=== PATIENT | female | born 1965 | race Caucasian/White ===

== ENCOUNTER → 2020-04-02 | Outpatient (CLI) | payer SELFPAY ==
[~2020-04-02] MED LIST: COZAAR 25MG25 MG/TAB PO; CYCLOSPORINE25 MG PO; RAPAMUNE2 MG
[2020-04-02 17:30] LABS: MEAN CELL VOLUME 71 fl (80.0-100.0); MEAN CORPUSCULAR HGB CONC 29 g/dl (33.0-37.0); MEAN PLATELET VOLUME 8.6 fl (7.4-10.4); PLATELET COUNT 312 K/mm3 (130-400); RED BLOOD COUNT 2.98 M/mm3 (4.10-5.30); REDCELL DISTRIBUTION WIDTH-CV 17.9 % (11.5-14.5)
[2020-04-02 17:39] LABS: HEMATOCRIT 21.2 % (37.0-47.0); HEMOGLOBIN 6.2 g/dl (12.5-16.0); MEAN CORPUSCULAR HEMOGLOBIN 21 pg (27.0-31.0)
[2020-04-02 17:42] LABS: ALBUMIN 4.2 gm/dL (3.5-5.0); BILIRUBIN,TOTAL 0.3 mg/dL (0.0-1.0); CALCIUM 9.3 mg/dL (8.4-10.2); CREATININE, serum 1.14 (0.52-1.25); POTASSIUM 4.5 mmol/L (3.4-5.0); TOTAL PROTEIN 8.1 gm/dL (6.4-8.2)
[2020-04-02 17:47] LABS: IRON,SERUM 24 ug/dL (35-150)
[2020-04-02 17:56] LABS: TOTAL IRON BINDING CAPACITY 245 ug/dL (265-497)
[2020-04-02 19:05] LABS: ANISOCYTOSIS 3+; BAND 5 % (0-10); HYPOCHROMIA 3+; LYMPHOCYTE 32 % (20.0-51.0); MYELOCYTE 2 % (0-0); NEUTROPHILS 56 % (42.0-75.2); PLATELET ESTIMATE NORMAL (NORMAL)
[2020-04-02 19:06] LABS: SCHISTOCYTES 2+
== END ==
LOC: COL.LAB 16:51
PROVIDERS: Internal Medicine Medical Oncology
DX: D64.9 Anemia, unspecified (principal)

== ENCOUNTER 2020-04-04 13:07 | Outpatient (RCR) | payer SELFPAY ==
[2020-04-04] VITALS (13 sets, daily range): BP systolic 114–151; BP diastolic 63–90; PULSE 79–90; TEMP 97.9–100
[2020-04-04] MEDS ORDERED: CYCLOSPORINE25 MG PO (14:41)
[2020-04-04] MEDS ORDERED: RAPAMUNE2 MG (14:42)
[2020-04-04] MEDS ORDERED: COZAAR 25MG25 MG/TAB PO (14:43)
--- NOTE | 2020-04-04 16:51 | NUR ---
Patient is alert and oriented. Hgb 6.2, Hct 21.2, Sodium 133, BUN 18, Fe 24. patient tolerating blood tranfusion well at the moment. RN provide education on blood transfusion. patient resting in bed at this time.
--- NOTE | 2020-04-04 23:04 | NUR ---
Handover received from MONIQUE Salinas. Second unit of blood transfusion completed without complications. No N/V/D, tingling, numbness, SOA, pain as per pt. Vitals were checked and recorded as per protocals. I/V line taken out and ask her to follow up with her physician about her next lab. Walked her down to ED with one of our staffs.
== END 2020-04-04 23:00 | disposition home or self-care (01) ==
LOC: EUO 13:07 → MEDICAL 13:10 → EUO 23:00
DX: D64.9 Anemia, unspecified (principal)
CPT/HCPCS: OP; J7050; P9040

== ENCOUNTER 2020-06-06 12:43 | Outpatient (RCR) | payer SELFPAY ==
[2020-06-06] VITALS (13 sets, daily range): BP systolic 137–161; BP diastolic 74–87; PULSE 62–79; TEMP 98.3–98.6
--- NOTE | 2020-06-06 14:07 | NUR ---
First transfusion started at this time. Protocol followed. This nurse will remain at bedside for first fifteen minutes of transfusion.
--- NOTE | 2020-06-06 17:30 | NUR ---
Second transfusion started at this time. S/Sx's reviewed for reaction. Protocol followed.
--- NOTE | 2020-06-06 20:30 | NUR ---
Patient's 2nd unit of blood completed at 2018. Patient tolerated well. Denies having and questions, needs, or concerns. IV taken out ot right AC. Patient walked out of hospital with hospital staff at approximately 2029.
== END 2020-06-06 20:30 | disposition home or self-care (01) ==
LOC: EUO 12:43 → MEDICAL 12:43 → EUO 20:30
DX: N18.9 Chronic kidney disease, unspecified (principal); D63.1 Anemia in chronic kidney disease
CPT/HCPCS: OP; J7050; P9040